=== PATIENT | male | born 1960 | race Caucasian/White ===

== ENCOUNTER 2021-05-23 22:11 | Observation (INO) | payer OTHER, SELFPAY ==
[2021-05-23 22:08] VITALS: BP 152/128; PULSE 126; RESP 22; TEMP 36.8; O2SAT 96; BMI 53.2
[2021-05-23 22:25] VITALS: BMI 53.2
--- NOTE | 2021-05-23 22:25 | XR_ITS ---
PROCEDURE INFORMATION: Exam: XR Chest Exam date and time: 05/23/2021 10:25 PM Age: 61 years old Clinical indication: Other: Weakness TECHNIQUE: Imaging protocol: XR of the chest. Views: 1 view. COMPARISON: CR CXR CHEST(2 VIEWS-NOT PORTABLE) 05/29/2015 11:32 AM FINDINGS: Lungs: Examination is limited by body habitus. Hazy dependent opacities which are likely atelectatic. No lobar consolidation. Pleural spaces: No pneumothorax. Heart/Mediastinum: No cardiomegaly. Bones/joints: No acute abnormality. IMPRESSION: Limited examination without definite acute findings.
--- NOTE | 2021-05-23 22:30 | ECG_ITS ---
APPROVED REPORT Exam: Resting ECG HR:105 bpm ECG Measurements Heart Rate 105 AXES QRSd 85 QRS 33 QT 308 T 43 QTc 369 Conclusion ATRIAL FIBRILLATION WITH RAPID VENTRICULAR RESPONSE LOW QRS VOLTAGE IN PRECORDIAL LEADS [QRS DEFLECTION < 1.0 mV IN CHEST LEADS] POSSIBLE ANTERIOR MYOCARDIAL INFARCTION , OF INDETERMINATE AGE [30 ms Q WAVE IN V3/V4, OR R < 0.2 mV IN V4] ABNORMAL ECG UNCONFIRMED REPORT Electronically signed by : Wm Bass MD 05/24/2021 16:47:10
[2021-05-23 22:36] VITALS: BP 99/51
[2021-05-23 22:37] LABS: Basophils # 0.1 K/mm3 (0-0.2); Basophils % 0.6 % (0.1-2.0); Eosinophils # 0.1 K/mm3 (0.0-0.4); Eosinophils % 0.9 % (0.1-12.0); Hematocrit 41.6 % (42.0-52.0); Hemoglobin 12.8 g/dL (14.1-18.0); Lymphocytes # 1.9 K/mm3 (0.7-4.5); Mean Corpuscular HGB Conc 30.8 g/dL (31.8-35.4); Mean Corpuscular Hemoglobin 27.6 pg (27.0-31.2); Mean Corpuscular Volume 89.6 fl (80-94); Mean Platelet Volume 9.3 fl (7.4-10.4); Monocytes # 0.5 K/mm3 (0.1-1.0); Monocytes % 4.8 % (1.7-9.3); Neutrophils # 7.1 K/mm3 (1.8-7.8); Neutrophils % 73.7 % (37.0-80.0); Platelet Count 320 K/mm3 (142-424); Red Blood Count 4.64 M/mm3 (4.60-6.20); Red Cell Distribution Width 14.7 % (11.5-17.5); White Blood Count 9.6 K/mm3 (4.8-10.8)
[2021-05-23 22:38] LABS: Chloride 98 mmol/L (98-107); Potassium 5.4 mmoL/L (3.5-5.1); Sodium 134 mmol/L (136-145)
--- NOTE | 2021-05-23 22:38 | CT_ITS ---
PROCEDURE INFORMATION: Exam: CT Abdomen And Pelvis Without Contrast Exam date and time: 05/23/2021 10:38 PM Age: 61 years old Clinical indication: Nausea and vomiting; Additional info: N/v/d TECHNIQUE: Imaging protocol: Computed tomography of the abdomen and pelvis without contrast. Radiation optimization: All CT scans at this facility use at least one of these dose optimization techniques: automated exposure control; mA and/or kV adjustment per patient size (includes targeted exams where dose is matched to clinical indication); or iterative reconstruction. COMPARISON: No relevant prior studies available. FINDINGS: Heart: Coronary artery calcifications. Liver: Diffuse low attenuation of the liver most likely secondary to fatty infiltration. Gallbladder and bile ducts: No calcified stones. No ductal dilation. Pancreas: Parenchymal enhancement is not evaluated without contrast. No ductal dilation. Spleen: There are multiple splenic calcifications likely on the basis of prior granulomatous exposure. Adrenal glands: No mass. Kidneys and ureters: Parenchymal enhancement is not evaluated without contrast. No hydronephrosis. Stomach and bowel: Descending colon is decompressed and not well evaluated. No obstruction. Appendix: No evidence of appendicitis. Intraperitoneal space: No free air. No significant fluid collection. Vasculature: Calcified atherosclerosis. No aneurysm. Lymph nodes: No enlarged lymph nodes. Urinary bladder: No acute abnormality. Reproductive: No acute abnormality. Bones/joints: No acute fracture. Soft tissues: Limited evaluation without contrast. No significant soft tissue swelling. IMPRESSION: Descending colon is decompressed and not well evaluated. Subtle/early colitis should be clinically excluded. Diffuse low attenuation of the liver most likely secondary to fatty infiltration.
[2021-05-23 22:41] LABS: Alanine Aminotransferase 19 U/L (12-78); Albumin Level 3.6 g/dl (3.5-5.0); Alkaline Phosphatase 38 U/L (38-126); Anion Gap 10.4 mEq/L (5-15); Aspartate Amino Transferase 27 U/L (17-59); Bilirubin,Direct 0.4 mg/dl (0.0-0.4); Bilirubin,Total 0.4 mg/dl (0.2-1.3); Blood Urea Nitrogen 45 mg/dl (9-20); Calcium 8.4 mg/dl (8.4-10.2); Carbon Dioxide 31 mmol/L (22.0-30.0); Creatinine Clearance Estimated 52 mL/min (50-200); Estimated Glomerular Filt Rate 56 ml/min (>60); GFR (African American) 67 ML/MIN (>60); Glucose 224 mg/dl (74-100); Lipase 88 U/L (23-300); Total Protein,Serum 6.3 g/dl (6.3-8.2)
[2021-05-23 22:53] LABS: Coronavirus 19, PCR Not Detected (NotDetected); Influenza A, PCR Not Detected (NotDetected); Influenza B, PCR Not Detected (NotDetected)
[2021-05-23 22:54] LABS: Troponin I < 0.01 ng/ml (0.00-0.034)
[2021-05-23 22:55] LABS: Lactic Acid 2.2 mmol/L (0.7-2.1)
[2021-05-23 23:09] LABS: Erythrocyte Sedimentation Rate 15 mm/hr (0-20)
[2021-05-23 23:15] LABS: POC Glucose,Bedside 209 (70-110)
[2021-05-23 23:30] VITALS: BP 91/53; PULSE 131; RESP 20; TEMP 36.7; O2SAT 96
--- NOTE | 2021-05-23 23:41 | HMH.EDNVD ---
ED Disposition Clinical Impression: Gastroenteritis, Morbid obesity with body mass index (BMI) of 50.0 to 59.9 in adult, Near syncope, Atrial fibrillation with rapid ventricular response, CABRERA (acute kidney injury) Diabetes mellitus Qualifiers: Diabetes mellitus type: type 2 Diabetes mellitus emt intermediate insulin use: unspecified emt intermediate insulin use status Diabetes mellitus complication status: with other specified complication Qualified Code(s): E11.69 - Type 2 diabetes mellitus with other specified complication Disposition: Admitted as Observation Condition on Discharge: Fair Instructions: DI for Diarrhea and Traveler's Diarrhea -- Adult, DI for Diarrhea and Traveler's Diarrhea -- Child, DI for Nausea -- Adult, DI for Nausea -- Child Referrals: Lacy Hough APRN [Primary Care Provider] - - Critical Care Critical Care Time: No Attestation: On 05/23/21, the high probability of a clinically significant, sudden or life threatening deterioration of the following system(s) required my full and direct attention, intervention and personal management. The time I documented below is in addition to time spent performing reported procedures but includes the following listed in this critical care notation. Medical Decision Making - Medical Records Medical records reviewed: Yes: I reviewed the patient's medical records. - Jose Inquiry Pt receiving controlled substance: No Vital Signs: 05/23/21 22:08 05/23/21 22:36 Temperature 98.2 F Temperature Source Oral Pulse Rate [Left Radial] 126 H Respiratory Rate 22 Blood Pressure 99/51 L Blood Pressure [Right Arm] 152/128 H Blood Pressure Mean [Right Arm] 136 Blood Pressure Source [Right Arm] Automatic Cuff Blood Pressure Position [Right Arm] Sitting 02 Sat by Pulse Oximetry 96 Oxygen Delivery Method Room Air - Lab Data Lab results reviewed: Yes: I reviewed the patient's lab results. Lab Results 05/23/21 22:12: POC Glucose 209 H 05/23/21 22:19: WBC 9.6, RBC 4.64, Hgb 12.8 L, Hct 41.6 L, MCV 89.6, MCH 27.6, MCHC 30.8 L, RDW 14.7, Plt Count 320, MPV 9.3, Neut % (Auto) 73.7, Lymph % (Auto) 20.0, [place] % (Auto) 4.8, Eos % (Auto) 0.9, Baso % (Auto) 0.6, Neut # (Auto) 7.1, Lymph # (Auto) 1.9, [place] # (Auto) 0.5, Eos # (Auto) 0.1, Baso # (Auto) 0.1 05/23/21 22:19: Sodium 134 L, Potassium 5.4 H, Chloride 98, Carbon Dioxide 31 H, Anion Gap 10.4, BUN 45 H, Creatinine 1.30 H, Estimated Creat Clear 52, Estimated GFR 56 L, Est GFR ( Amer) 67, Glucose 224 H, Calcium 8.4, Total Bilirubin 0.4, Direct Bilirubin 0.4, Conjugated Bilirubin 0.0, Indirect Bilirubin 0.0, Unconjugated Bilirubin 0.0, AST 27, ALT 19, Alkaline Phosphatase 38, Troponin I < 0.01, Total Protein 6.3, Albumin 3.6, Lipase 88 05/23/21 22:19: ESR 15 05/23/21 22:19: Lactate 2.2 H 05/23/21 22:19: C-Reactive Protein 17.0 H, Procalcitonin 0.100 05/23/21 22:40: SARS-CoV-2 (PCR) Not detected, Influenza A Untype (PCR) Not detected, Influenza Type B (PCR) Not detected Result diagrams: 05/23/21 22:19 05/23/21 22:19 Orders (Tests/Meds): ED MEDICATIONS Generic Name Dose Route Start Last Admin Trade Name Freq PRN Reason Stop Dose Admin Sodium Chloride 1,000 mls @ 999 mls/hr 05/23/21 23:00 05/23/21 22:58 Sod Chlor 0.9% 1000ml Bag IV 05/24/21 00:00 999 mls/hr .Q1H1M HARPER Administration Discontinued Medications Generic Name Dose Route Start Last Admin Trade Name Freq PRN Reason Stop Dose Admin Sodium Chloride 500 mls @ 999 mls/hr 05/23/21 22:45 Sod Chlor 0.9% 1000ml Bag IV 05/23/21 23:15 .Q31M HARPER Ondansetron HCl 4 mg 05/23/21 22:42 05/23/21 22:53 Ondansetron 4mg/2ml Vial IV 05/23/21 22:43 4 mg ONCE ONE Administration ORDERS Category Date Time Status Diarrhea 23 Panel, PCR Stat Lab 05/23/21 22:48 Ordered POC Glucose,Bedside Stat Lab 05/23/21 22:38 Ordered Troponin I Q3H Lab 05/24/21 01:30 Ordered Troponin I Q3H Lab 05/24/21 04:30 Ordered - Radiol
--- NOTE | 2021-05-23 23:50 | PC.NURSE ---
NOTIFIED OF CONTINUED ELEVATED HR. NORBERT GIVES VERBAL ORDERS FOR PT'S HOME DOSE OF CARDIZEM NOW
[2021-05-24] VITALS (18 sets, daily range): BP systolic 78–151; BP diastolic 40–88; PULSE 80–127; RESP 17–22; TEMP 36.5–36.9; O2SAT 89–98; BMI 40.8; BMI 53.4; BMI 53.1
[2021-05-24 00:09] LABS: Magnesium 1.5 mg/dl (1.6-2.3)
[2021-05-24 00:31] LABS: T4 (Thyroxine) 7.2 ug/dl (5.53-11.0)
--- NOTE | 2021-05-24 00:46 | PC.NURSE ---
PT ARRIVED TO FLOOR VIA STRETCHER FROM ED W/STAFF @ [id number]
[2021-05-24 02:33] LABS: Reflex Lactic Add Lactic Reflex
[2021-05-24 02:44] LABS: Lactic Acid Follow Up (RFLX 1) 1.7 mmol/L (0.7-2.1)
--- NOTE | 2021-05-24 03:33 | PC.NURSE ---
PT WAS TRANSFERRED FROM MED /SURG VIA W/C TO ICU W/STAFF @ 5618
--- NOTE | 2021-05-24 04:34 | PC.NURSE ---
0340: REPORT RECEIVED FROM Alejandro RODRIGUEZ RN. I AM ASSUMING CARE OF PATIENT. PATIENT REQUIRING CARDIZEM GTT SO PATIENT WAS MOVED TO STEPDOWN STATUS.
--- NOTE | 2021-05-24 05:11 | PC.NURSE ---
PATIENT IS CURRENTLY RESTING IN BED. PATIENT SNORING, O2 SATS WILL DROP TO UPPER 80s WHILE ASLEEP. IT QUICKLY INCREASES TO LOWER 90s ONCE AWAKENED. PATIENT IS ON A CARDIZEM GTT AT 10ML/HR. CURRENT HR:94. PATIENT REMAINS IN AFIB. PATIENT DENIES ANY NAUSEA/ DIZZINESS. PATIENT HASN' T HAD ANY DIARRHEA SINCE I TOOK OVER CARE. PATIENT NPO FOR CARDIOLOGY CONSULT IN THE AM.
--- NOTE | 2021-05-24 06:01 | PC.NURSE ---
Jose STEPHENSON NOTIFIED OF CONSULT. RN WAS CALLED AND NOTIFIED
[2021-05-24 06:13] LABS: Basophils # 0.1 K/mm3 (0-0.2); Basophils % 0.7 % (0.1-2.0); Eosinophils % 0.2 % (0.1-12.0); Hematocrit 35.9 % (42.0-52.0); Lymphocytes # 1.8 K/mm3 (0.7-4.5); Lymphocytes % 22.6 % (10-50); Mean Corpuscular HGB Conc 31.8 g/dL (31.8-35.4); Mean Corpuscular Hemoglobin 28.1 pg (27.0-31.2); Mean Corpuscular Volume 88.4 fl (80-94); Mean Platelet Volume 9.3 fl (7.4-10.4); Monocytes # 0.5 K/mm3 (0.1-1.0); Monocytes % 6.4 % (1.7-9.3); Neutrophils # 5.6 K/mm3 (1.8-7.8); Neutrophils % 70.1 % (37.0-80.0); Platelet Count 278 K/mm3 (142-424); Red Blood Count 4.06 M/mm3 (4.60-6.20); Red Cell Distribution Width 14.8 % (11.5-17.5)
[2021-05-24 06:18] LABS: POC Glucose,Bedside 108 (70-110)
[2021-05-24 06:30] LABS: Blood Urea Nitrogen 61 mg/dl (9-20); Calcium 8.1 mg/dl (8.4-10.2); Carbon Dioxide 31 mmol/L (22.0-30.0); Chloride 102 mmol/L (98-107); Creatinine Clearance Estimated 57 mL/min (50-200); Estimated Glomerular Filt Rate 61 ml/min (>60); GFR (African American) 74 ML/MIN (>60); Glucose 133 mg/dl (74-100); Sodium 135 mmol/L (136-145)
--- NOTE | 2021-05-24 06:40 | PC.NURSE ---
Ceci at bedside to do ECHO. Spoke with SOM Ponce and she informed me that Wilbur Musa called tp inquire about consults and she informed him of cardiology consult.
[2021-05-24 06:42] LABS: Troponin I < 0.01 ng/ml (0.00-0.034)
[2021-05-24 06:43] LABS: Hemoglobin 11.4 g/dL (14.1-18.0)
--- NOTE | 2021-05-24 07:32 | HMH.PHAVTE ---
[facility] Pharmacy VTE Monitoring - Patient Demographics Admission date: 05/23/21 Report Date: 05/24/21 Time: 07:32 Allergies/Adverse Reactions: Patient Allergies No Known Drug Allergies Allergy (Unknown, Verified 11/21/20 11:00) Height: 1.68 m Weight: 150 kg Patient Problems: Current Active Problems Gastroenteritis (Acute) Near syncope (Acute) Atrial fibrillation with rapid ventricular response (Acute) CABRERA (acute kidney injury) (Acute) Diabetes mellitus (Acute) Morbid obesity with body mass index (BMI) of 50.0 to 59.9 in adult (Acute) - VTE Risk Labs: VTE Related Lab Results Hgb 11.4 g/dL (14.1-18.0) L D 05/24/21 04:45 Hct 35.9 % (42.0-52.0) L 05/24/21 04:45 Plt Count 278 K/mm3 (142-424) 05/24/21 04:45 BUN 61 mg/dl (9-20) H D 05/24/21 04:45 Creatinine 1.20 mg/dl (0.66-1.25) 05/24/21 04:45 Estimated Creat Clear 57 mL/min (50-200) 05/24/21 04:45 Was VTE Risk Assessment Performed: Yes VTE Score: 6 VTE Risk Level: Moderate Risk - Prophylaxis VTE Prophylaxis Ordered?: Yes Types of VTE Prophylaxis: Pharmacological Pharmacologic Type: Other (ELIQUIS)
--- NOTE | 2021-05-24 08:00 | CA_ITS ---
APPROVED REPORT EXAM: Comprehensive 2D, Doppler, and color-flow Echocardiogram Power Crane Operator: Ceci Moore CRT Ht: 5 ft 6 in Wt: 330lbs BSA: 2.47 BP: 99/51 mmHg Indications: COPD, Atrial Fibrillation, Diabetes, Hyperlipidemia, Hypertension/HDD, AFIB, gastroenteritis, ex smoker 2D Dimensions LVOT 1.69 cm (M/F) 1.5-2.5 M-Mode Dimensions RVDd 3.22 cm (0.9-2.6) LA Diam 3.79 cm (1.9-4.0) LVDd 3.94 cm (3.5-5.7) Ao Diam 4.64 cm (2.0-3.7) LVDs 2.02 cm (3.5-5.7) IVSd 1.81 cm (0.6-1.1) PWd 1.60 cm (0.6-1.1) EF (Teich) 80.60% FS 48.70% EDV (Teich) 67.50 mL TAPSE 1.72 (<1.7) ESV (Teich) 13.10 mL LV Diastology E Decel Time 233.00 (160-240 msec) E/A Ratio 3.76 Aortic Valve LVOT Max 86.00 (70-110 cm/s) LVOT VTI 13.08 cm AoV Peak Javier. 181.00 (50-130 cm/s) AO Peak GR. 13.20 mmHg AO Mean GR. 8.70 (<5 mmHg) AO VTI 25.53 (18-25 cm) TABBY (VTI) 1.15 (2.5-4.5 cm2) Mitral Valve MV E Max Javier. 98.00 (40-130 cm/s) MV A Velocity 26.00 (40-130 cm/s) E/A Ratio 3.76 MV Decel. Time 233.00 (160-240 ms) MV PHT 68.00 ms Pulmonary Valve PV Peak Velocity 85.00 (50-150 cm/s) Tricuspid Valve TR P. Velocity 214.00 cm/s RAP Estimate 10.00 mmHg RVSP 28.30 mmHg Left Ventricle Technically difficult study because of the patient factors and poor acoustic windows. Left atrium is mildly enlarged, left ventricle is normal size, mild concentric left ventricular hypertrophy, visually estimated ejection fraction 55% with no obvious regional wall motion abnormality, diastolic parameters are inconclusive. Right Ventricle Right atrium and right ventricle are mildly enlarged with normal contractility. Aortic Valve Aortic valve is thickened and calcified without Doppler evidence of aortic stenosis or aortic insufficiency. Mitral Valve Mitral valve leaflets are minimally thickened, there is mild mitral regurgitation. Tricuspid Valve Tricuspid valve grossly normal, there is mild tricuspid regurgitation, tricuspid regurgitation jet velocity is inadequate for calculation of the right ventricular systolic pressure. Pulmonic Valve Pulmonic valve is poorly visualized. Great Vessels Aortic root is normal size. Inferior vena cava is poorly visualized. Pericardium No significant pericardial effusion noted. Conclusion 1. Biatrial enlargement, normal left ventricular size, mild concentric left ventricular hypertrophy, visually estimated ejection fraction 55% with no regional wall motion abnormality, diastolic parameters are inconclusive. 2. Mildly enlarged right ventricle with normal contractility. 3. Mild mitral and tricuspid regurgitation. 4. No significant pericardial effusion noted. 5. Inferior vena cava is poorly visualized. Electronically signed by : Wicho Isaac MD 05/24/2021 13:05:20
--- NOTE | 2021-05-24 08:37 | HMH.CNCARD ---
History of Present Illness Consult date: 05/24/21 Consult reason: atrial fibrillation Chief complaint: Near syncope, A. fib with RVR Additional Medical History:: 1. A. fib A. Chronic apixaban therapy 2. History of cardiac cath without need for intervention within last 3 yrs per patient 3. Obesity 4. DM 5. HTN 6. HLD 7. Ex smoker History of present illness: pt with vomiting and reported dark diarrhea today with crampy abd pain and feeling near syncope - has known a fib and copd as he smoked prev - also has diabetes - no loc and no known exposure The above per Dr. Melendez Pt relates acute onset of GI symptoms yesterday with near syncope during illness. History of chronic A. fib for which he is on diltiazem and apixaban therapy. Relates cardiac cath in past without need for intervention. Sees Dr. Naidu in [place], [place] for Cardiology care and wishes to continue seeing her. [facility] History Medical History: Reports:: Atrial Fibrillation, Coronary Artery Disease, Diabetes Mellitus Type 2, Hyperlipidemia, Hypertension, MRSA Denies:: Cancer, Diabetes Mellitus Type 1 *Have you ever received a pneumonia vaccine?: No *Have you received a flu vaccine this season?: No Laterality Cases: Bilateral: Cataract Other Surgeries: Yes: No Previous Surgery, Cardiac Catheterization Amputation: No Fractures: No - *Social History Last grade of school completed: GED Smoking Status: Former smoker # Packs/Day (cigarettes): 1 #Yrs smoked (if former smoker): 30 Alcohol Intake: current Alcohol Intake Frequency:: 0-2 drinks per day Substance Use Type: crack/cocaine *Occupational Status:: disabled Housing: apartment *Travel in the last 8 weeks: None Family Hx:: Cancer, Coronary Artery Disease, Diabetes, Heart Attack, Hyperlipidemia, Hypertension, Substance abuse, Alcoholism Meds Home Medications Medication Instructions Recorded Confirmed Type apixaban 5 mg tablet 5 mg PO BID tab 08/09/20 05/24/21 History cyclobenzaprine 10 mg tablet 10 mg PO TID tab 08/09/20 05/24/21 History diltiazem HCl 180 mg 180 mg PO DAILY cap 08/09/20 05/24/21 History capsule,extended release 24 hr fenofibrate nanocrystallized 145 145 mg PO DAILY 08/09/20 05/24/21 History mg tablet furosemide 20 mg tablet 20 mg PO DAILY tab 08/09/20 05/24/21 History lisinopril 20 1 tab PO BID tab 08/09/20 05/24/21 History mg-hydrochlorothiazide 12.5 mg tablet meloxicam 15 mg tablet 15 mg PO DAILY tab 08/09/20 05/24/21 History metformin 500 mg tablet,extended 500 mg PO TID 08/09/20 05/24/21 History release 24 hr metoprolol succinate 50 mg 50 mg PO DAILY 08/09/20 05/24/21 History tablet,extended release 24 hr montelukast 10 mg tablet 10 mg PO DAILY tab 08/09/20 05/24/21 History Albuterol Sulfate [Proair Hfa] 2 puff IH Q4-6H PRN 05/24/21 05/24/21 History Fluticasone/Salmeterol [Advair 1 inh IH BID 05/24/21 05/24/21 History 250/50mcg Diskus] Allergies Allergy/AdvReac Type Severity Reaction Status Date / Time No Known Drug Allergies Allergy Unknown Verified 11/21/20 11:00 Exam Vital signs and Labs for Last 24 Hours: Temp Pulse Resp BP Pulse Ox 98.1 F 88 20 107/62 L 92 L 05/24/21 03:40 05/24/21 07:00 05/24/21 07:00 05/24/21 07:00 05/24/21 07:00 Laboratory Results - last 24 hr 05/23/21 22:12: POC Glucose 209 H 05/23/21 22:19: WBC 9.6, RBC 4.64, Hgb 12.8 L, Hct 41.6 L, MCV 89.6, MCH 27.6, MCHC 30.8 L, RDW 14.7, Plt Count 320, MPV 9.3, Neut % (Auto) 73.7, Lymph % (Auto) 20.0, [place] % (Auto) 4.8, Eos % (Auto) 0.9, Baso % (Auto) 0.6, Neut # (Auto) 7.1, Lymph # (Auto) 1.9, [place] # (Auto) 0.5, Eos # (Auto) 0.1, Baso # (Auto) 0.1 05/23/21 22:19: Sodium 134 L, Potassium 5.4 H, Chloride 98, Carbon Dioxide 31 H, Anion Gap 10.4, BUN 45 H, Creatinine 1.30 H, Estimated Creat Clear 52, Estimated GFR 56 L, Est GFR ( Amer) 67, Glucose 224 H, Calcium 8.4, Total Bilirubin 0.4, Direct Bilirubin 0.4, Conjugated Bilirubin 0.0, Indirect Bilirubin
--- NOTE | 2021-05-24 08:45 | PC.NURSE ---
Received verbal order from Tatiana Musa for 15 mg IVP Cardizem bolus x1 now and for cardizem gtt to be increased to 15 mg/hr. RB+V. Caridizem bolus and gtt increased @ 0824.
--- NOTE | 2021-05-24 09:42 | HMH.HP ---
*Admission Date: 05/23/21 *Chief complaint: Syncope *History of present illness: 61-year-old male patient presents to the [facility] emergency department with vomiting and dark diarrhea. He reports he has had cramping abdominal pain and near fainting spells for the past several days. He does have a history of A. fib and COPD as well as diabetes. He denies any loss of consciousness or falls. He is currently taking diltiazem and apixaban for his A. fib 05/23/21 CXR: FINDINGS: Lungs: Examination is limited by body habitus. Hazy dependent opacities which are likely atelectatic. No lobar consolidation. Pleural spaces: No pneumothorax. Heart/Mediastinum: No cardiomegaly. Bones/joints: No acute abnormality. IMPRESSION: Limited examination without definite acute findings. Electronically signed by Joseph Jonas MD 61-year-old male patient sitting up in bed reports some shortness of breath, no worse than usual and denies chest pain denies any syncopal episodes during night. campus monitor reading A. fib, Cardizem drip infusing. [facility] History I have reviewed the patient's past medical history: Yes Medical History: Reports:: Atrial Fibrillation, Coronary Artery Disease, Diabetes Mellitus Type 2, Hyperlipidemia, Hypertension, MRSA Denies:: Cancer, Diabetes Mellitus Type 1 *Have you ever received a pneumonia vaccine?: No *Have you received a flu vaccine this season?: No Laterality Cases: Bilateral: Cataract Other Surgeries: Yes: No Previous Surgery, Cardiac Catheterization Amputation: No Fractures: No - *Social History Last grade of school completed: GED Smoking Status: Former smoker # Packs/Day (cigarettes): 1 #Yrs smoked (if former smoker): 30 Alcohol Intake: current Alcohol Intake Frequency:: 0-2 drinks per day Substance Use Type: crack/cocaine *Occupational Status:: disabled Housing: apartment *Travel in the last 8 weeks: None Family Hx:: Cancer, Coronary Artery Disease, Diabetes, Heart Attack, Hyperlipidemia, Hypertension, Substance abuse, Alcoholism Review of Systems - Review of Systems Review of systems:: pertinent systems reviewed and negative unless documented below - Constitutional Reports lack of energy, Denies body ache(s) - Eyes Denies blind spots, Denies loss of vision - ENT Denies bleeding gums, Denies hearing loss - *Cardiovascular Denies chest pain, Denies chest pain at rest - *Respiratory Denies chest congestion, Denies cough - *Gastrointestinal Reports change in bowel habits, Reports change in stools, Reports loose stools, Reports nausea, Reports vomiting, Denies abdominal pain - *Musculoskeletal Denies abnormal walking - *Neurologic Denies localized weakness, Denies headache(s), Denies seizure-like activity - Psychiatric Denies abnormal sleep pattern, Denies anxiety - Endocrine Denies cold intolerance, Denies excessive sweating - Hematologic/Lymphatic Denies easy bleeding, Denies easy bruising - Allergic/Immunologic Denies GI upset with certain foods, Denies tongue swelling Meds Home Medications Medication Instructions Recorded Confirmed Type apixaban 5 mg tablet 5 mg PO BID tab 08/09/20 05/24/21 History cyclobenzaprine 10 mg tablet 10 mg PO TIDP PRN tab 08/09/20 05/24/21 History diltiazem HCl 180 mg 180 mg PO DAILY cap 08/09/20 05/24/21 History capsule,extended release 24 hr fenofibrate nanocrystallized 145 145 mg PO DAILY 08/09/20 05/24/21 History mg tablet furosemide 20 mg tablet 20 mg PO DAILY tab 08/09/20 05/24/21 History lisinopril 20 1 tab PO BID tab 08/09/20 05/24/21 History mg-hydrochlorothiazide 12.5 mg tablet meloxicam 15 mg tablet 15 mg PO DAILY tab 08/09/20 05/24/21 History metformin 500 mg tablet,extended 500 mg PO HS 08/09/20 05/24/21 History release 24 hr metoprolol succinate 50 mg 50 mg PO DAILY 08/09/20 05/24/21 History tablet,extended release 24 hr montelukast 10 mg tablet 10 mg PO DAILY ta
--- NOTE | 2021-05-24 10:43 | HMH.PHAINT ---
MEDICATION RECONCILIATION COMPLETED ON PATIENT USING EXTERNAL FILL HISTORY FROM PHARMACY. -EVELYN MARTIN, KIRSTIND
--- NOTE | 2021-05-24 11:31 | PC.NURSE ---
0920 - Sunny gtt off @ this time per DARSHANA Lawrence
[2021-05-24 11:46] LABS: POC Glucose,Bedside 200 (70-110)
--- NOTE | 2021-05-24 14:56 | PC.NURSE ---
No acute changes. Remains on room air. Lungs CTA. A-fib on tely, rate controlled. Abdomen soft, non-tender w/ active BS. No BM this shift. Voiding independentlly per urinal. Urine is yellow and clear. Pt is independent w/ adl's. No safety concerns. Offered bath and linen change, pt declined. No complaints this shift. He is currently resting in bed. No needs voiced. Call edvin w/in reach.
--- NOTE | 2021-05-24 14:59 | HMH.PTEV ---
Physical Therapy Evaluation Rehab PT IP Evaluation Start: 05/24/21 13:39 Freq: .once Status: Active Protocol: Document 05/24/21 14:56 PHORELBA (Rec: 05/24/21 14:59 PHORNE [id number]) Subjective/History History History 61 yowm adm to [facility] with N/V and diarrhea. He reports he lives alone and is generally independent with all mobility without and AD. Subjective Subjective Pt with no c/o this pm. Rehab PT IP Eval Objective Appearance Patient Behavior Appropriate Patient Orientation Person,Place,Time Difficulty following instructions none Speech Pattern Clear Ambulation Patient Able to Ambulate Yes Ambulation Observation IP General Gait Pattern Observation Wide Based Gait Ambulation Distance (feet) 10 Ambulation Assistive Device None Ambulation Ability Supervision/Stand by Balance Ability to Arise Able, uses arms to help Sitting Balance Steady, safe Standing Balance Steady, wide stance Dynamic Sitting Balance Ability Good Dynamic Standing Balance Ability Fair Transfers Bed Transfer Ability Supervision/Stand by Chair Transfer Ability Supervision/Stand by Sit to Stand Bed Transfer Ability Supervision/Stand by Sit to Stand Chair Transfer Ability Supervision/Stand by ROM All Extremities PT ROM Status WFL MMT All Extremities PT MMT WFL Rehab PT IP prob,goals,plan Problems Date of Evaluation: 05/24/21 Discharge Plan PT Discharge Plan Pt is currently at baseline for all mobility and is appropriate to return home once medically stable. G -code Required No Eval Complexity Eval Charge Codes 61682 - Moderate Complexity PHYSICIAN CERTIFICATION: I certify the specified therapy services for Buster [place]rett are required, authorized, and reviewed every 30 days.
--- NOTE | 2021-05-24 15:19 | HMH.OTEV ---
OT Inpatient Evaluation Rehab OT IP Evaluation Start: 05/24/21 13:39 Freq: ONCE Status: Complete Protocol: Document 05/24/21 15:09 MATEOJAY (Rec: 05/24/21 15:19 [email or web address] [id number]) Rehab OT IP Assessment Subjective History 61 year old male referred to skilled OT IP services after being admitted for N/Y and diarrhea. Patient lives alone in 1 story home and no steps to enter. Family assist patient for transportation if needed. Patient independent with ADLs and fx'l mobility tasks at home. Subjective I can get up. Analaysis Patient's safety during bed mobiltiy, transfer and ambulation during OT evaluation. Patient completed all tasks independently. Patient made no attempt to assist with d/d socks at this time. Patient stated, I don't wear socks at home. I can't put them on. Educated Patient re: usage of sock aid to improve LB drsg. Patient continue to verbalize, I don' t wear socks. Objective Patient Orientation Person,Place,Time,Name Upper Extremity Gross ROM WFL Bed Mobility bed mobility - supine/sit Assist Level Independent Transfer Training Sit/Stand Transfer Assist Level Independent Chair Transfer Ability Independent Chair Transfer Technique Sit to/from Ambulatory Chair Transfer Assistive Devices None Rehab OT IP prob,goals,plan Problems Date of Evaluation: 05/24/21 Rehab Potential Rehab Potential Innapropriate for Skilled Therapy Equipment Needs Assistive Devices None / NA Discharge Plan OT Discharge Plan Patient to be d/c to home after medical discharge. Patient is fx'l independent bed mobility, transfers and ambulation. Patient independent with ADLs beside d /d socks which patient verbalize I don't wear socks. Eval Complexity Eval Charge Codes
[2021-05-24 15:56] LABS: POC Glucose,Bedside 97 (70-110)
[2021-05-24 21:16] LABS: POC Glucose,Bedside 168 (70-110)
[2021-05-25] VITALS: BP 109/50; PULSE 80; PULSE 96; RESP 14; TEMP 36.8; O2SAT 93
[2021-05-25 04:00] VITALS: BP 106/60; PULSE 90; PULSE 97; RESP 18; TEMP 36.9; O2SAT 90
--- NOTE | 2021-05-25 04:37 | PC.NURSE ---
PATIENT HAS RESTED WELL THIS SHIFT. HE WAS GIVEN A TOTAL BATH AND LINEN CHANGE. PATIENT HAS REMAINED IN CONTROLLED AFIB. PATIENT DENIES ANY CHEST PAIN AND HAS HAD NO COMPLAINTS. HE HAS SAT UP ON THE SIDE OF THE BED MULTIPLE TIMES. IV SITE REMAINS PATENT. PATIENT VOIDING PER URINAL WITHOUT DIFFICULTY. PATIENT HAS NOT HAD A BM THIS SHIFT THEREFORE I HAVE BEEN UNABLE TO COLLECT STOOL SAMPLE FOR DIARRHEA PANEL. NO ACUTE DISTRESS NOTED AT THIS TIME. WILL CONTINUE TO MONITOR.
[2021-05-25 05:03] VITALS: BMI 52.5
--- NOTE | 2021-05-25 05:35 | PC.NURSE ---
LAB AT BEDSIDE FOR AM LAB DRAW.
[2021-05-25 05:38] LABS: Basophils % 0.5 % (0.1-2.0); Eosinophils # 0.2 K/mm3 (0.0-0.4); Hematocrit 35.5 % (42.0-52.0); Lymphocytes % 33.3 % (10-50); Mean Corpuscular HGB Conc 30.8 g/dL (31.8-35.4); Mean Corpuscular Hemoglobin 27.5 pg (27.0-31.2); Mean Corpuscular Volume 89.3 fl (80-94); Mean Platelet Volume 8.7 fl (7.4-10.4); Monocytes # 0.4 K/mm3 (0.1-1.0); Monocytes % 6.1 % (1.7-9.3); Neutrophils # 3.5 K/mm3 (1.8-7.8); Neutrophils % 57.2 % (37.0-80.0); Platelet Count 270 K/mm3 (142-424); Red Blood Count 3.98 M/mm3 (4.60-6.20); Red Cell Distribution Width 14.9 % (11.5-17.5)
[2021-05-25 05:56] LABS: Anion Gap 10.4 mEq/L (5-15); Blood Urea Nitrogen 31 mg/dl (9-20); Calcium 8.4 mg/dl (8.4-10.2); Carbon Dioxide 30 mmol/L (22.0-30.0); Chloride 101 mmol/L (98-107); Creatinine Clearance Estimated 68 mL/min (50-200); Estimated Glomerular Filt Rate 85 ml/min (>60); GFR (African American) 103 ML/MIN (>60); Glucose 144 mg/dl (74-100); Potassium 4.4 mmoL/L (3.5-5.1); Sodium 137 mmol/L (136-145)
[2021-05-25 06:44] LABS: POC Glucose,Bedside 122 (70-110)
[2021-05-25 08:00] VITALS: BP 114/68; PULSE 110; RESP 20; TEMP 36.7; O2SAT 94
--- NOTE | 2021-05-25 09:07 | HMH.DCSUM ---
General - General Admission date:: 05/24/21 Discharge date: 05/25/21 HPI HPI: 61-year-old male patient presents to the [facility] emergency department with vomiting and dark diarrhea. He reports he has had cramping abdominal pain and near fainting spells for the past several days. He does have a history of A. fib and COPD as well as diabetes. He denies any loss of consciousness or falls. He is currently taking diltiazem and apixaban for his A. fib 05/23/21 CXR: FINDINGS: Lungs: Examination is limited by body habitus. Hazy dependent opacities which are likely atelectatic. No lobar consolidation. Pleural spaces: No pneumothorax. Heart/Mediastinum: No cardiomegaly. Bones/joints: No acute abnormality. IMPRESSION: Limited examination without definite acute findings. Electronically signed by Joseph Jonas MD 61-year-old male patient sitting up in bed reports some shortness of breath, no worse than usual and denies chest pain denies any syncopal episodes during night. night monitor reading A. fib, Cardizem drip infusing. Hospital Course Hospital Course: pt was admitted and treated with ivf and was seen by card-near syncope, A. fib with RVR Additional Medical History:: 1. A. fib A. Chronic apixaban therapy 2. History of cardiac cath without need for intervention within last 3 yrs per patient 3. Obesity 4. DM 5. HTN 6. HLD 7. Ex smoker History of present illness: pt with vomiting and reported dark diarrhea today with crampy abd pain and feeling near syncope - has known a fib and copd as he smoked prev - also has diabetes - no loc and no known exposure The above per Dr. Melendez Pt relates acute onset of GI symptoms yesterday with near syncope during illness. History of chronic A. fib for which he is on diltiazem and apixaban therapy. Relates cardiac cath in past without need for intervention. Sees Dr. Naidu in [place], [place] for Cardiology care and wishes to continue seeing her. 2. A. fib with RVR. Improved with higher dose of Cardizem. Convert to oral cardizem CD 360 mg daily. Continue apixaban. Follow up with regular Program Advisor next week. Echo performed with preliminary showing preserved LVEF. 3. HTN, controlled 4. HLD, continue statin 5. DM, per PCP 6. Obesity metoprolol succinate 50 mg daily Diltiazem CD 360 mg daily (or 180 mg BID) Apixaban 5 mg BID Furosemide 20 mg daily lisinopril HCT 20/12.5 mg BID no gi illness and ambulatory and tolerating diet with stable vital signs and labs with improved bun/cr Objective Vital signs: Temp Pulse Resp BP Pulse Ox 98.1 F 110 H 20 114/68 94 L 05/25/21 08:00 05/25/21 08:00 05/25/21 08:00 05/25/21 08:00 05/25/21 08:00 no acute distress, morbidly obese - *Routine HEENT Exam Head: Present: normocephalic Eye: Present: EOMI, PERRL ENT: Present: mucous membranes moist - *Routine Neck Exam Present: supple. Absent: JVD - *Routine Respiratory Exam Present: CTA bilaterally - *Routine Cardiovascular Exam Present: RRR, murmur, S4 - *Routine Abdominal Exam Present: soft - *Routine Extremities Exam Present: edema. Absent: calf tenderness - *Routine Skin Exam Present: intact - *Routine Neurological Exam Present: alert, oriented X3, CN II-XII intact - Routine Psychiatric Exam Present: normal affect Results Labs on day of discharge: Labs from last 24 hours 05/25/21 05/25/21 05/25/21 06:35 05:11 05:11 WBC 6.0 RBC 3.98 L Hgb 11.0 L Hct 35.5 L MCV 89.3 MCH 27.5 MCHC 30.8 L RDW 14.9 Plt Count 270 MPV 8.7 Neut % (Auto) 57.2 Lymph % (Auto) 33.3 [place] % (Auto) 6.1 Eos % (Auto) 3.0 Baso % (Auto) 0.5 Neut # (Auto) 3.5 Lymph # (Auto) 2.0 [place] # (Auto) 0.4 Eos # (Auto) 0.2 Baso # (Auto) 0.0 Sodium 137 Potassium 4.4 Chloride 101 Carbon Dioxide 30 Anion Gap 10.4 BUN 31 H D Creatinine 0.
== END 2021-05-25 11:35 | disposition home or self-care (01) ==
LOC: ER 22:25 → 2ND 23:54 → ICU 05-24 03:39
PROVIDERS: Nurse Practitioner Family; Admitting Provider Emergency Medicine; Emergency Provider Emergency Medicine; PCP Nurse Practitioner Family; Visit Provider Family Medicine
DX: I48.91 Unspecified atrial fibrillation (principal); Z79.01 Long term (current) use of anticoagulants; I25.10 Atherosclerotic heart disease of native coronary artery without angina pectoris; E11.9 Type 2 diabetes mellitus without complications; I10 Essential (primary) hypertension; E66.01 Morbid (severe) obesity due to excess calories; Z68.43 Body mass index [BMI] 50.0-59.9, adult; Z79.4 Long term (current) use of insulin; N17.9 Acute kidney failure, unspecified; Z79.899 Other long term (current) drug therapy; Z20.822 Contact with and (suspected) exposure to COVID-19
CPT/HCPCS: 36415; 71045; 74176; 80048; 80076; 82962; 83605; 83690; 83735; 84145; 84436; 84443; 84484; 85025; 85651; 86140; 93005; 93306; 96365; 96366; 96376; 97162; 97165; 99284; C9803; G0378; J2405; U0003; U0005

== ENCOUNTER 2022-03-18 13:00 | Outpatient (RCR) | payer OTHER, SELFPAY | END 2022-04-22 17:05 | disposition home or self-care (01) | LOC: PT.CARL 13:00 | PROVIDERS: PCP Nurse Practitioner Family; Visit Provider Orthopaedic Surgery Adult Reconstructive Orthopaedic Surgery | DX: M25.511 Pain in right shoulder (principal) | CPT/HCPCS: 97010; 97014; 97110; 97140; 97163; 97164; G0283 ==